=== PATIENT | male | born 1990 | race Caucasian/White ===

== ENCOUNTER 2021-01-08 10:21 | Emergency (ER) | payer BC, SELFPAY ==
[2021-01-08 10:27] VITALS: BP 129/80; PULSE 80; O2SAT 97
[2021-01-08 10:32] VITALS: BP 129/80; PULSE 82; RESP 18; TEMP 37.2; O2SAT 97; BMI 33.7
--- NOTE | 2021-01-08 11:01 | ED.ANIMALBIT ---
HPI - Animal Bite General Chief Complaint: Animal Bite Stated Complaint: HIT IN FACE, LACERATIONS Time Seen by Provider: 01/08/21 10:25 Source: patient Mode of arrival: ambulatory Limitations: no limitations History of Present Illness HPI narrative: 30 y/o healthy male presenting to the ER with dog bite to the face that occurred just prior to arrival. 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 He went to go pet a pit bull who attacked him and bit hit face. He sustained deep lacerations to hit upper and lower lips, right cheek. Lacerations involve the kit border x3 and there is a flap at his left lower lip extending down into his chin. He has mild oozing on arrival and moderate pain. He does not know when his last tetanus shot was. The dog had been in custody at the [facility] for about 1 week and can continue to be monitored there. MD complaint: animal bite Onset (ago): hour(s) Animal: dog Description of animal: unknown animal Mechanism: bite Location: face Pain description: sharp and burning Severity scale (1-10): 7 Context: unprovoked Associated symptoms: bleeding Treatments prior to arrival: wound dressing(s) and irrigation Related Data Patient tetanus UTD: No Allergies Allergy/AdvReac Type Severity Reaction Status Date / Time amoxicillin [AMOXICILLIN] Allergy Severe HIVES Verified 01/08/21 10:34 Penicillins [PENICILLINS] Allergy Unknown UNKNOWN Unverified 04/05/20 16:05 Review of Systems Review of Systems: Constitutional: No Fever, No Chills ENT/Mouth: No sore throat, No Rhinorrhea, No Swallowing Difficulty Cardiovascular: No Chest Pain, No SOB Respiratory: No Cough, No Sputum Gastrointestinal: + Nausea, No Vomiting, No Diarrhea, No abdominal Pain Genitourinary: No Dysuria, No Urinary Frequency, No Hematuria Musculoskeletal: No joint pain, No Myalgias Skin: + Skin Lesions, No rash Neuro: + Weakness, No Numbness, No Dizziness, No Headache Psych: + Anxiety/Panic, No Depression Heme/Lymph: No Bruising, No Lymphadenopathy PMFSH Past Medical History Medical History (Updated 01/08/21 @ 11:22 by YUNG Villalba) No known health problems Social History Social History Advance Directives: No Advance Directives Information Provided: No Physical Exam Vital Signs: Vital Signs: Last Vital Signs Temp 99.0 F 01/08/21 10:32 Pulse 82 01/08/21 10:32 Resp 18 01/08/21 10:32 BP 129/80 01/08/21 10:32 Pulse Ox 97 01/08/21 10:32 Body Mass Index 33.7 Appearance: Alert. Oriented X3. No acute distress. Head: deep laceration to upper lip x2 involving kit border on the right side. left lower lip with deep laceration extending from kit border to upper left chin with skin flap, small piece of lower lip appears to be missing with ecchymosis to inner lip. No through and through injury. mild ozzing from sites. small superficial laceration to upper right cheek Eyes: Pupils equal, round and reactive to light. ENT: Pharynx normal. Neck: Normal inspection. Neck supple. CVS: Normal heart rate and rhythm. Pulses normal. Respiratory: No respiratory distress. Skin: Skin warm and dry. Normal skin color. Normal skin turgor. Extremities: No lower extremity edema. right dorsal wrist with 2cm superficial laceration. Neuro: Oriented X 3. No motor deficit. No sensory deficit. Course Course Course Narrative: 30 y/o male presenting with complex dog bite to the face from a pit bull in a pound. Wounds are extensive and involve both upper and lower lips. Will call [facility] ER to discuss transfer for Plastic Surgery evaluation. Reevaluation(s) Reevaluation #1: Spoke with Dr. Carvalho from Plastic Surgery at [facility] who is accepting patient to ER for evaluation. Patient agreeable with plan and his girlfriend will pick him up and transport him there. He is hemodynamically stable and suitable for transfer by private vehicle. Discharge Plan Discharge Clinical Impression: Dog bite Qualifiers: Encounter type: initial encounter Qualified Code(s): W54.0XXA - Bitten by dog, initial encounter Patient Disposition: Xfer Acute Care Hospital Transfer Details: [facility] ER for Plastic Surgery Instructions: Animal Bite (ED) Additional Instructions: Upon discharge present immediately to [facility] ER, they are expecting you. Dr. Carvalho from Plastic Surgery is aware of your case. Present the [facility] paperwork there.
--- NOTE | 2021-01-08 11:01 | PC.NURSE ---
CALL PLACED @ THIS TIME TO [facility] PT TX LINE @ GEOFFREY BARRAGAN REQUEST KATHI ANSWERS, TAKES PT INFO AND ASKS TO SPEAK WITH GEOFFREY HALE TAKES OVER CALL RIGHT AWAY
--- NOTE | 2021-01-08 11:17 | PC.NURSE ---
PT TO BE SENT TO [facility] ACCEPTING DR COOPER PLASTIC SURGEON.
--- NOTE | 2021-01-08 11:28 | PC.NURSE ---
REPORT GIVEN TO [facility] ER NURSE.
== END 2021-01-08 11:37 | disposition short-term general hospital (02) ==
PROVIDERS: Emergency Provider Emergency Medicine Emergency Medical Services; PCP Family Medicine
DX: S01.551A Open bite of lip, initial encounter (principal); S01.451A Open bite of right cheek and temporomandibular area, initial encounter; W54.0XXA Bitten by dog, initial encounter; Y93.9 Activity, unspecified; Y92.89 Other specified places as the place of occurrence of the external cause; Y99.9 Unspecified external cause status
CPT/HCPCS: 99285

== ENCOUNTER 2021-03-06 11:34 | Emergency (ER) | payer OTHER, SELFPAY ==
[2021-03-06 11:58] VITALS: BP 123/74; BP 130/74; PULSE 54; PULSE 70; RESP 18; TEMP 36.8; O2SAT 97; O2SAT 99; BMI 33.7
[2021-03-06] MEDS: Lidocaine HCl 1 % MPF 5 ML VIAL SUBCUT ×3 (12:56→14:17)
--- NOTE | 2021-03-06 13:04 | PC.NURSE ---
PT AWAKE, ALERT AND ORIENTED X 3. SKIN WARM AND DRY. RESP UNLABORED. DENIES N/V. LACERATION NOTED TO LEFT LOWER LEG. REPORTS PANTS GETTING CAUGHT ON CHAINSAW. BLEEDING CONTROLLED UPON ARRIVAL TO ED. PT STATES TETANUS UP TO DATE. EVALUATED BY YUNG COHN. PLAN IS FOR SUTURING AND THEN DC. PT AGREEABLE TO THIS PLAN.
--- NOTE | 2021-03-06 14:06 | ED_ITS ---
HPI - Wound/Laceration General Chief Complaint: Wound/Laceration Stated Complaint: LEFT LOWER LEG LACERATION Time Seen by Provider: 03/06/21 12:44 History of Present Illness HPI narrative: Patient complains of left lower leg laceration from a chainsaw that slipped which happened a few minutes ago at work, no numbness no weakness no tingling no other injury Related Data Allergies Allergy/AdvReac Type Severity Reaction Status Date / Time amoxicillin [AMOXICILLIN] Allergy Severe HIVES Verified 03/06/21 11:58 Penicillins [PENICILLINS] Allergy Unknown UNKNOWN Unverified 04/05/20 16:05 Review of Systems Review of Systems: Positive for left leg laceration Negatives are no dizziness no weakness no headache no neck pain no back pain no shortness of breath no numbness weakness or tingling, no joint pain no difficulty ambulating Yes all other systems are reviewed and are negative [facility] Past Medical History [facility] Narrative: Patient is up-to-date on tetanus immunization and got out recently Source: nursing notes reviewed Medical History (Updated 03/06/21 @ 14:07 by YUNG Plummer) No known health problems Social History Social History Advance Directives: No Advance Directives Information Provided: No Physical Exam Vital Signs: Vital Signs: Last Vital Signs Temp 98.2 F 03/06/21 11:58 Pulse 54 03/06/21 11:58 Resp 18 03/06/21 11:58 BP 123/74 03/06/21 11:58 Pulse Ox 99 03/06/21 11:58 Body Mass Index 33.7 General appearance is no distress Head is normocephalic atraumatic Neck is supple Respiratory no distress Left lower extremity the left lateral lower leg has a 4 cm laceration into subcutaneous tissue, it is neurovascular intact distal there is full range of motion in knee and ankle, gait is normal Course Course Course Narrative: Procedure note for 4 cm left lower leg laceration The laceration is cleansed with Betadine Anesthesia is 10 cc of 1% lidocaine The wound is copiously irrigated and scrubbed, no foreign body visualized A mix of 4-0 and 3-0 sutures were applied to the laceration, 9 sutures were placed, bleeding was controlled and wound was bandaged Patient ambulates easily and was discharged from the ER Discharge Plan Discharge Clinical Impression: Laceration Patient Disposition: Home, Self-Care Additional Instructions: Stitches should remain in for 10-14 days They can be removed at [facility] for work related injury Return any time for redness swelling discharge from the wound, pain, any sign of infection or any concerns Referrals: [facility] [Provider Group] - 2 days (Suture removal 10-14 days) Interventions: ED Discharge Assessment Last Done: 03/06/21 14:32 Discharge Date/Time: 03/06/21 14:34
--- NOTE | 2021-03-06 14:32 | PC.NURSE ---
LACERATION SUTURED BY YUNG COHN. PT TOLERATED WITHOUT INCIDENT. DRESSING APPLIED TO PATIENT. CARE INSTRUCTIONS PROVIDED. PT AWARE AND AGREEABLE TO PLAN
== END 2021-03-06 14:34 | disposition home or self-care (01) ==
PROVIDERS: Emergency Provider Emergency Medicine; PCP Family Medicine
DX: S81.812A Laceration without foreign body, left lower leg, initial encounter (principal); W31.82XA Contact with other commercial machinery, initial encounter; Y93.89 Activity, other specified; Y92.89 Other specified places as the place of occurrence of the external cause; Y99.0 Civilian activity done for income or pay
CPT/HCPCS: 12032; 99283; 99284

== ENCOUNTER → 2021-03-11 14:50 | Outpatient (BNVA) | payer OTHER, SELFPAY | PROVIDERS: PCP Family Medicine; Visit Provider Physician Assistant | DX: S81.812A Laceration without foreign body, left lower leg, initial encounter (principal); X58.XXXA Exposure to other specified factors, initial encounter ==

== ENCOUNTER → 2021-03-18 13:18 | Outpatient (BNVA) | payer OTHER, SELFPAY | PROVIDERS: PCP Family Medicine; Visit Provider Physician Assistant Medical | DX: S81.812A Laceration without foreign body, left lower leg, initial encounter (principal); W26.9XXA Contact with unspecified sharp object(s), initial encounter | CPT/HCPCS: 99212; 99213 ==

== ENCOUNTER → 2024-10-19 11:40 | Outpatient (BNVA) | payer OTHER, SELFPAY | PROVIDERS: PCP Family Medicine; Visit Provider Physician Assistant | DX: S20.212A Contusion of left front wall of thorax, initial encounter (principal); W17.89XA Other fall from one level to another, initial encounter; M25.552 Pain in left hip; R10.2 Pelvic and perineal pain; M54.50 Low back pain, unspecified | CPT/HCPCS: 71101; 73502; 99204 ==

== ENCOUNTER → 2024-10-21 13:13 | Outpatient (BNVA) | payer OTHER, SELFPAY | PROVIDERS: PCP Family Medicine; Visit Provider Physician Assistant | DX: S20.212A Contusion of left front wall of thorax, initial encounter (principal); S70.02XA Contusion of left hip, initial encounter; W17.89XA Other fall from one level to another, initial encounter; Z02.79 Encounter for issue of other medical certificate | CPT/HCPCS: 99213 ==